=== PATIENT | female | born 1965 | race Caucasian/White ===

== ENCOUNTER 2016-12-03 21:38 | Inpatient (IN) | payer BC ==
[~2016-12-03] VITALS: Ht 154.9 cm; Wt 72.6 kg
[~2016-12-03 21:38] MED LIST: ADVIL200 MG PO; ASPIR 8181 M1 PO; CALCIUM 500-VI1 EAC1 PO; ESSENTIAL WOMA1 EAC1 PO; GLUCOSAMINE &1 EAC1 PO; PRAVACHOL20 MG PO; RAMIPRIL1.25 MG PO; T:SLIM1 EACH MC; WELLBUTRIN100 MG PO
[2016-12-04 07:56] VITALS: BP 137/72
[2016-12-04 08:02] LABS: POINT-OF-CARE METER ID UU14174212
[2016-12-04 11:38] LABS: POINT-OF-CARE METER ID UU13113675
[2016-12-04 13:05] VITALS: BP 115/55
[2016-12-04 15:45] VITALS: BP 106/56
[2016-12-04 17:36] LABS: POINT-OF-CARE METER ID UU14162508
[2016-12-04 19:25] VITALS: BP 107/57
[2016-12-04 23:35] VITALS: BP 100/52
[2016-12-04 23:52] LABS: POINT-OF-CARE METER ID UU14162508
[2016-12-05 04:08] VITALS: BP 106/56
[2016-12-05 05:48] LABS: POINT-OF-CARE METER ID UU14162508
[2016-12-05 07:38] LABS: HEMATOCRIT 30.5 % (36.0-46.0); MCHC 33.8 G/DL (30.0-36.0); MCV 88.9 FL (83-99); PLATELET COUNT 285 K/uL (156-360); RBC DIS.WIDTH-CV 12.6 % (11.8-14.6); RBC DIS.WIDTH-SD 41.1 % (39-53); WHITE BLOOD COUNT 9.4 K/uL (4.1-10.2)
[2016-12-05 07:50] VITALS: BP 99/56
[2016-12-05 07:53] LABS: RED BLOOD COUNT 3.43 M/uL (3.80-5.20)
[2016-12-05 08:07] LABS: ANION GAP 6 MEQ/L (2-14); CHLORIDE 104 MEQ/L (99-109); GFR ESTIMATE (CALCULATED) > 59 mL/min/; GLUCOSE 155 mg/dL (70-99); SAMPLE HEMOLYSIS CHECK 0; SAMPLE ICTERIC CHECK 0; SAMPLE LIPEMIA CHECK 0; SODIUM 139 MEQ/L (136-147); UREA NITROGEN (BUN) 12 mg/dL (9-23)
[2016-12-05] MEDS ORDERED: ENDOCET 5-3251 EACH PO (08:29)
[2016-12-05] MEDS ORDERED: WELLBUTRIN XL300 MG PO (09:54)
[2016-12-05] MEDS ORDERED: EXCEDRIN MIGRA1 EAC3 PO (09:56)
[2016-12-05 11:25] VITALS: BP 118/58
[2016-12-05 12:07] LABS: POINT-OF-CARE METER ID UU14162508
[2016-12-05 15:45] VITALS: BP 124/63
[2016-12-05 15:48] LABS: POINT-OF-CARE METER ID UU14162508
[2016-12-05 21:38] LABS: POINT-OF-CARE METER ID UU14208750
[2016-12-06 00:05] VITALS: BP 124/62
[2016-12-06 06:27] LABS: POINT-OF-CARE METER ID UU14208750
[2016-12-06 07:45] VITALS: BP 140/78
[2016-12-06] MEDS ORDERED: IBUPROFEN800 MG PO (09:44)
== END 2016-12-06 11:08 | disposition home or self-care (01) | DRG 743 ==
LOC: ENRESERV 21:38 → 2SOUTH 12-04 07:22 → ENRESERV 12-04 11:32 → 2EASTP 12-04 12:57 → 2SOUTH 12-04 15:40 → 2EASTP 12-06 11:08
PROVIDERS: Obstetrics & Gynecology Obstetrics
PROC: 0UT00ZZ Resection of Right Ovary, Open Approach (ICD-10-PCS; principal; 2016-12-04)
PROC: 0UTC0ZZ Resection of Cervix, Open Approach (ICD-10-PCS; principal; 2016-12-04)
PROC: 0UT70ZZ Resection of Bilateral Fallopian Tubes, Open Approach (ICD-10-PCS; principal; 2016-12-04)
PROC: 0UT90ZZ Resection of Uterus, Open Approach (ICD-10-PCS; principal; 2016-12-04)
DX: D27.0 Benign neoplasm of right ovary (principal); E10.65 Type 1 diabetes mellitus with hyperglycemia; N92.0 Excessive and frequent menstruation with regular cycle; E78.5 Hyperlipidemia, unspecified; E66.9 Obesity, unspecified; E55.9 Vitamin D deficiency, unspecified; Z96.41 Presence of insulin pump (external) (internal); Z68.30 Body mass index [BMI] 30.0-30.9, adult; Z79.4 Long term (current) use of insulin; Z86.32 Personal history of gestational diabetes; Z79.82 Long term (current) use of aspirin; Z91.041 Radiographic dye allergy status; Z80.3 Family history of malignant neoplasm of breast
CPT/HCPCS: 80048; 82948; 85027; 88307; J0131; J0690; J1170; J1815; J1885; J2250; J2405; J2710; J2765; J3010; J7120

== ENCOUNTER 2017-01-13 14:07 | Day surgery (SDC) | payer BC ==
[~2017-01-13] VITALS: Ht 154.9 cm; Wt 71.2 kg
[~2017-01-13 14:07] MED LIST changes: +ENDOCET 5-3251 EACH PO; +EXCEDRIN MIGRA1 EAC3 PO; +IBUPROFEN800 MG PO; +WELLBUTRIN XL300 MG PO
[2017-01-13 14:57] VITALS: BP 134/90
[2017-01-13 14:58] LABS: POINT-OF-CARE METER ID UU14174212; POINT-OF-CARE USER ID AHSRSCSLC11
[2017-01-13 18:45] VITALS: BP 143/81
[2017-01-13 19:25] VITALS: BP 124/59
== END 2017-01-13 19:40 | disposition home or self-care (01) ==
LOC: SDC 14:07
PROVIDERS: Orthopaedic Surgery Hand Surgery
PROC: 01N50ZZ Release Median Nerve, Open Approach (ICD-10-PCS; principal; 2017-01-13)
DX: G56.02 Carpal tunnel syndrome, left upper limb (principal); Z83.3 Family history of diabetes mellitus
CPT/HCPCS: 82948; C9353; J0690; J1170; J3010; S0020